=== PATIENT | male | born 1990 | race Caucasian/White ===

== ENCOUNTER 2017-05-24 19:28 | Emergency (ER) | payer OTHER ==
[2017-05-24] MEDS: CYCLOBENZAPRINE 10 MG TAB PO (23:15)
[2017-05-24] MEDS: PERCOCET 5MG/325MG TAB PO (23:15)
== END 2017-05-25 00:13 | disposition home or self-care (01) ==
LOC: M ED 19:28
DX: R07.81 Pleurodynia (principal); W50.0XXA Accidental hit or strike by another person, initial encounter; Y92.9 Unspecified place or not applicable; Y93.67 Activity, basketball
CPT/HCPCS: 71101

== ENCOUNTER → 2018-02-28 | Outpatient (CLI) | payer OTHER | LOC: M SLEEP 20:12 | DX: G47.33 Obstructive sleep apnea (adult) (pediatric) (principal) | CPT/HCPCS: 95810 ==

== ENCOUNTER → 2018-05-03 | Outpatient (CLI) | payer OTHER ==
[~2018-05-03] MED LIST: CYCL10TA PO
--- NOTE | 2018-05-05 10:30 | SLEEPCENT ---
DATE OF PROCEDURE: 05/03/2018 ORDERING PROVIDER: Dr. Sammie Barlow, copy to Italo Saavedra INTERPRETATION: Nocturnal polysomnography was performed for the titration of pressure therapy in this patient with obstructive sleep apnea syndrome. Apnea-hypopnea index 79.3. For testing the patient was fit with a ResMed Mirage FX nasal mask of standard size, 4 cm of water pressure were applied to the circuit and the lights were extinguished. 8 hours and 8 minutes of data were reviewed. There were 285 minutes of sleep identified. Sleep latency was prolonged at 135 minutes. Rapid eye movement (REM) latency was prolonged at 165 and sleep architecture improved late in the study on optimal pressure therapy. There were two REM cycles noted. Overall sleep efficiency 59.2% due to wake early in the test. The patient's electrocardiogram showed a sinus rhythm with an average heart rate of 70 beats per minute. EEG showed normal waveforms for awake and sleep. Respiratory events were reasonably palliated with CPAP of pressure of +7. Remaining measures of sleep physiology were normal. IMPRESSION: Obstructive sleep apnea syndrome (G47.33) RECOMMENDATIONS: Nightly use of pressure therapy 7 cm of water.
== END ==
LOC: M SLEEP 19:53
PROVIDERS: ATTEND Internal Medicine Pulmonary Disease
DX: G47.33 Obstructive sleep apnea (adult) (pediatric) (principal)

== ENCOUNTER → 2018-09-08 | Outpatient (CLI) | payer OTHER ==
--- NOTE | 2018-09-12 08:41 | REP ---
MR LUMBAR SPINE WITHOUT CONTRAST: HISTORY: Back pain. Decreased signal intensity on T2-weighted images is present in the L5-S1 intervertebral disc. The disc is decreased in height. These findings are consistent with disc degeneration. There is no disc bulge or herniation at the L1-2 through L3-4 levels. The nerves exit the neural foramina without compression. A diffuse disc bulge is present at the L4-5 level. There is minimal compression of the thecal sac. The L4 nerves exit the neural foramina without compression. A diffuse disc bulge and small central disc protrusion are present at the L5-S1 level. There is no thecal sac compression. The L5 nerves exit the neural foramina without compression. The conus medullaris is normal in appearance terminating at the level of the T12-L1 intervertebral discs. Normal signal intensity is present at the lumbar vertebral bodies. IMPRESSION:1. Diffuse disc bulge at the L4-5 level with minimal thecal sac compression. 2. Diffuse disc bulge and small central disc protrusion at the L5-S1 level without thecal sac or nerve compression. Electronically Signed by Paul Briceno MD 09/12/2018 08:55 A
== END ==
LOC: M RAD 17:40
PROVIDERS: ATTEND Physical Therapist
DX: M51.26 Other intervertebral disc displacement, lumbar region (principal); M51.27 Other intervertebral disc displacement, lumbosacral region